=== PATIENT | female | born 1950 | race Caucasian/White ===

== ENCOUNTER 2021-11-03 08:12 | Observation (INO) ==
--- NOTE | 2021-10-29 12:20 | Anesthesiology Consultation ---
Date of Service October 29, 2021 Assessment & Plan (1) Encounter for pre-operative examination: Chart Review Chart Review: Acceptable Risk for Surgery (pending preop Covid testing results ) and Patient NOT seen in Pre Admission Testing - Check BSG AM DOS Per nursing assessment 10/29/21, patient denies any recent travel. No known Covid positive exposures or Covid related symptoms. No known Covid infection in the past 90 days. Pt is fully vaccinated for Covid. Preop Covid testing scheduled 10/30/21= will await results -S/P Right TKA (08/07/11): SAB at L3/L4 at [facility] History Surgery Operation Date: 11/03/21 12:25 Proposed Procedures p Left Total Knee Arthroplasty - Eugene Diego DO Height/Weight Height: 5 ft 3 in Weight: 83.915 kg Allergies Allergy/AdvReac Type Severity Reaction Status Date / Time erythromycin base AdvReac Mild Nausea Verified 10/29/21 11:27 Medications Home Medications Medication Instructions Recorded Confirmed Last Taken allopurinol 100 mg tablet 200 mg PO QAM 04/23/21 10/29/21 Unknown ascorbic acid (vitamin C) 500 mg 500 mg PO 3XWK 04/23/21 10/29/21 Unknown tablet (Vitamin C) atenolol 50 mg tablet 75 mg PO QAM 04/23/21 10/29/21 Unknown atorvastatin 80 mg tablet 80 mg PO QPM 04/23/21 10/29/21 Unknown bupropion HCl 100 mg tablet,12 hr 100 mg PO BID 04/23/21 10/29/21 Unknown sustained-release cholecalciferol (vitamin D3) 25 25 mcg PO QAM 04/23/21 10/29/21 Unknown mcg (1,000 unit) tablet (Vitamin D3) cyanocobalamin (vitamin B-12) 1,000 mcg PO QAM 04/23/21 10/29/21 Unknown 1,000 mcg tablet enalapril maleate 20 mg tablet 20 mg PO DAILY 04/23/21 10/29/21 Unknown ferrous sulfate 325 mg (65 mg 325 mg PO 3XWK 04/23/21 10/29/21 Unknown iron) tablet (iron) hydrochlorothiazide 25 mg tablet 25 mg PO QAM 04/23/21 10/29/21 Unknown magnesium 200 mg tablet 200 mg PO BID 04/23/21 10/29/21 Unknown omeprazole 20 mg capsule,delayed 20 mg PO QAM 04/23/21 10/29/21 Unknown release trazodone 50 mg tablet 50 mg PO HS PRN 04/24/21 10/29/21 Unknown amlodipine 2.5 mg tablet 2.5 mg PO QAM 10/29/21 10/29/21 Unknown Past Medical History Medical History Anxiety and depression Arthritis Chronic kidney disease GERD (gastroesophageal reflux disease) History of anemia Hx of diabetes mellitus Diet controlled since weight loss Hx of gout Hyperlipidemia Hypertension Peripheral neuropathy Restless leg syndrome Past Family History Family History Sister Family history of diabetes mellitus Other No family history of adverse response to anesthesia Past Surgical History Surgical History H/O umbilical hernia repair History of cataract surgery R/L History of cholecystectomy History of colonoscopy History of esophagogastroduodenoscopy (EGD) History of nasal surgery History of total right knee replacement Right TKA (08/07/11): SAB at L3/L4 at [facility] Social History Smoking Status: Former smoker Do You Dip or Chew Tobacco: No Smoking End Date: 1988 Hx Alcohol Use: Yes Alcohol type: wine alcohol intake frequency: a few times a week Hx Substance Use: No substance use type: does not use Lab Results Anesthesia Preop Results Results Anesthesia Widget: WBC 9.22 K/uL (4.8-10.8) 10/17/21 Hgb 11.2 g/dL (12.0-16.0) L 10/17/21 Hct 34.0 % (37-47) L 10/17/21 Plt 275 K/uL (130-400) 10/17/21 Na 140 mmol/L (136-145) 10/17/21 K 4.0 mmol/L (3.5-5.1) 10/17/21 Cl 105 mmol/L (98-107) 10/17/21 CO2 28 mmol/L (21-32) 10/17/21 BUN 32 mg/dl (6-23) H 10/17/21 Creat 1.09 mg/dl (0.6-1.2) 10/17/21 Glucose Level 99 mg/dl (70-99(Fasting)) 10/17/21 PT 10.7 Seconds (9.0-12.0) 10/17/21 PTT 25.9 Seconds (21.0-31.0) 10/17/21 INR 1.0 (0.9-1.1) 10/17/21 Blood Type O Positive 10/17/21 Antibody Screen NEGATIVE 10/17/21 Testing Laboratory Results Hx of anemia- on iron supplement- (relatively stable form 05/2021) Electrocardiogram Date: 04/23/21 Findings: + SB @ (58bpm ) Otherwise normal EKG per cardio
--- NOTE | 2021-10-30 09:10 | History & Physical Report ---
Date of Service October 30, 2021 Assessment & Plan (1) Left knee DJD: We will proceed with a left total knee arthroplasty. Postoperatively she will be kept overnight in the hospital and given aspirin for DVT prophylaxis. She wants to go to a rehab facility upon discharge. History of Present Illness Chief Complaint: Osteoarthritis of the left knee. Primary Care Provider: Redd Nugent MD Anita is a pleasant 71-year-old female who is been doing with chronic increasing left knee pain. X-rays and clinical examination have been diagnostic for advanced arthritis of the left knee. She has a history of a right knee [place] [address] Martini. She is done well with that. She like to proceed with a left total knee arthroplasty.. Allergies Allergy/AdvReac Type Severity Reaction Status Date / Time erythromycin base AdvReac Mild Nausea Verified 10/29/21 11:27 Home Medications Medication Instructions Recorded Confirmed Type allopurinol 100 mg tablet 200 mg PO QAM 04/23/21 10/29/21 History ascorbic acid (vitamin C) 500 mg 500 mg PO 3XWK 04/23/21 10/29/21 History tablet (Vitamin C) atenolol 50 mg tablet 75 mg PO QAM 04/23/21 10/29/21 History atorvastatin 80 mg tablet 80 mg PO QPM 04/23/21 10/29/21 History bupropion HCl 100 mg tablet,12 hr 100 mg PO BID 04/23/21 10/29/21 History sustained-release cholecalciferol (vitamin D3) 25 25 mcg PO QAM 04/23/21 10/29/21 History mcg (1,000 unit) tablet (Vitamin D3) cyanocobalamin (vitamin B-12) 1,000 mcg PO QAM 04/23/21 10/29/21 History 1,000 mcg tablet enalapril maleate 20 mg tablet 20 mg PO DAILY 04/23/21 10/29/21 History ferrous sulfate 325 mg (65 mg 325 mg PO 3XWK 04/23/21 10/29/21 History iron) tablet (iron) hydrochlorothiazide 25 mg tablet 25 mg PO QAM 04/23/21 10/29/21 History magnesium 200 mg tablet 200 mg PO BID 04/23/21 10/29/21 History omeprazole 20 mg capsule,delayed 20 mg PO QAM 04/23/21 10/29/21 History release trazodone 50 mg tablet 50 mg PO HS PRN 04/24/21 10/29/21 History amlodipine 2.5 mg tablet 2.5 mg PO QAM 10/29/21 10/29/21 History Past Med/Surg History Medical History Anxiety and depression Arthritis Chronic kidney disease GERD (gastroesophageal reflux disease) History of anemia Hx of diabetes mellitus Diet controlled since weight loss Hx of gout Hyperlipidemia Hypertension Peripheral neuropathy Restless leg syndrome Surgical History H/O umbilical hernia repair History of cataract surgery R/L History of cholecystectomy History of colonoscopy History of esophagogastroduodenoscopy (EGD) History of nasal surgery History of total right knee replacement Right TKA (08/07/11): SAB at L3/L4 at [facility] Family History Sister Family history of diabetes mellitus Other No family history of adverse response to anesthesia Social History Smoking Status: Former smoker Second Hand Exposure: Yes ( A CHILD); Hx Alcohol Use: Yes Alcohol type: wine Hx Substance Use: No Preferred Language: Lithuanian Communication Ability: Effective Trainmaster Required: No Beliefs That Will Affect Care: None Current Living Situation: Alone Feels Safe at Home: Yes Assistive Devices: Cane and Glasses Review of Systems All systems reviewed & are unremarkable except as noted in HPI & below. Physical Exam On physical examination of the left knee, she has a trace effusion she has good motion of 0 to 120 degrees. No instability. Pain of the distal medial femoral condyle. Constitutional WD/WN, vitals as above Eyes PERRL, conjunctivae normal, anicteric sclerae ENMT external ear and nose normal, oropharynx normal Neck trachea midline, no thyromegaly Respiratory normal respiratory effort Cardiovascular RRR, no murmur, no edema Gastrointestinal (Abdomen) normal bowel sounds, soft, nontender, no hepatosplenomegaly Psychiatric A+Ox3, euthymic affect Results & Data Results & Data Laboratory Results . Diagnostic Findings X-rays of the left knee do show some arthritis with joint space narrowing osteophyte formation and [id number] articulation. It mostly involves the medial compartment.. PG Care Time/CCT Total # of Minutes Spent Total Time Spent with Patient: Total time spent is greater than 50% in coordination of care (as documented) at patient's floor/unit and/or counseling patient: Coding Level of Care Code None Diagnoses Left knee DJD M17.12
[~2021-11-03 08:12] MED LIST: ACETAMINOPHEN 500 MG TAB PO SCH; BUPIVACAINE 0.5 % 5 MG/1 ML PF 10ML VIAL ONE; FAMOTIDINE 20 MG TAB PO SCH; GABAPENTIN 300 MG CAP PO SCH; Ketorolac (*for OR use only*) 30 MG, dexAMETHasone 4 MG, KETAMINE HCL (**OR use only) 1... INFIL SCH; LR 500ML BOLUS, THEN 15ML/HR IV SCH; LR 60ML/HR IV SCH; ROPIVACAINE 0.5% 5 MG/ML 30 ML VIAL ONE; TRANEXAMIC ACID 1,000 MG **IV Intra-op IV SCH; TRANEXAMIC ACID 1,000 MG **IV Pre-op IV SCH; ceFAZolin 2000MG 2,000 MG/15 ML SYR IV SCH; dexAMETHasone 4 MG TAB PO SCH
--- NOTE | 2021-11-03 08:33 | History & Physical Bridge Note ---
Date of Service November 03, 2021 History & Physical Bridge Note I have examined the patient, reviewed the History & Physical and in the interval since the performance of the History & Physical I have noted the following changes of clinical significance: no changes noted
[2021-11-03] MEDS ORDERED: MIDAZOLAM HCL 1 MG/ML 2ML VIAL ONE (10:03)
[2021-11-03] MEDS ORDERED: fentaNYL citrate 100 MCG/2 ML VIAL ONE (10:03)
[2021-11-03] MEDS ORDERED: PROPOFOL IV EMULSION 10 MG/ML 20 ML VIAL IV ONE ×2 (10:05)
[2021-11-03] MEDS ORDERED: HYDROmorphone INJ 1 MG/ML SYRINGE IV PRN (10:06)
[2021-11-03] MEDS ORDERED: KETOROLAC 30 MG/ML VIAL IV PRN (10:06)
[2021-11-03] MEDS ORDERED: ONDANSETRON INJ 2 MG/ML 2 ML VIAL IV PRN (10:06)
[2021-11-03] MEDS ORDERED: ATROPINE SULFATE 0.1 MG/ML 10ML SYR IV PRN (10:06)
[2021-11-03] MEDS ORDERED: ePHEDrine sulfate 50 MG/ML AMP IV PRN (10:06)
[2021-11-03] MEDS ORDERED: ORTHO JOINT ANESTHETIC ONE (10:39)
--- NOTE | 2021-11-03 12:21 | Operative Report ---
PG Post Operative Report Pre & Post Diagnosis Operation Date: 11/03/21 10:35 Pre-Op Diagnosis: Left Knee Degenerative Joint Disease Post-Op Diagnosis: Left Knee Degenerative Joint Disease I identified the patient and participated in the time-out.: Yes Procedure Operation Date: 11/03/21 10:35 Actual Procedures p Left Total Knee Arthroplasty(Left) - Eugene Diego DO Surgeon Eugene Diego DO Broker Assistant Chencho Camacho PAC Estimated Blood Loss 10 Findings Consistent with Post-Op Diagnosis Specimens Left femoral and tibial bone Complications none Disposition Disposition: Recovery Room Indications Anita is a pleasant 71-year-old female who is been dealing with chronic increasing left knee pain. X-rays and clinical examination have been diagnostic for advanced arthritis of the left knee. After failing conservative treatment, she elected proceed with a left total knee arthroplasty. Description of Procedure Implants used: I used a [employer] Person[employer] total knee arthroplasty system with a size 5 standard femur, D tibia, 28 oval patella, and a size 11 medial congruent polyethylene bearing. All components were cemented in place with Biomet cement. Anita arrived [facility] for the above procedure. She was seen in the preoperative holding area and the operative extremity was identified and signed. She was given a preoperative antibiotic, TXA, a spinal anesthetic and an adductor nerve block. She was taken back to the operating room and laid on the table in supine position. She was given basic sedation. The operative knee was then prepped and draped in sterile fashion. A timeout was done, and the patient and the operative extremity was properly identified. A midline incision was made directly over the patella. Dissection was taken down to the extensor mechanism. A subvastus arthrotomy was used. The medial retinaculum was released and the fat pad was mostly excised. The knee was flexed and the ACL, PCL, and meniscus were removed. A drill was sent down the center of the femoral canal followed by an intramedullary deepa. Off that deepa a distal femoral cutting block was placed. 9 mm was resected off the distal femur at 5 of valgus. A posterior referencing AP sizing guide was then placed on the distal femur. The femur measured to be a size 5. 2 drill holes were placed in 3 of external rotation. A 4-in-1 cutting block was then impacted into place. Anterior, posterior, and chamfer cuts were then made. The proximal tibia was then exposed. An external tibial alignment guide was placed. A tibial cut guide was then anchored in place and the proximal tibia was then resected. The posterior aspect of the knee was then opened up and any additional meniscus fragments and osteophytes were removed. The tibia measured to be a size D. The tibial plate was then placed in the appropriate rotation and the tibia was drilled and punched. Trial components were then placed. I used a size 11 medial congruent polyethylene insert. The knee was brought through a full range of motion and felt to be stable. The peg holes for the femoral component were then drilled. The patella was then everted and 9 mm was resected off the posterior aspect of the patella. The patella measured to be a size 28 oval. 3 peg holes were then drilled. A trial patella was placed. The knee was once again brought through a full range of motion and felt to be stable. Trial components were then removed. The surrounding soft tissues were injected with 100 cc of an orthopedic pain control cocktail. All components were then cemented into place with Biomet cement. The final polyethylene insert was then snapped into place. Once cement was dry the tourniquet was deflated. Hemostasis was obtained. A dilute betadyne lavage was then done for 3 minutes. The joint was then irrigated with normal saline solution. The subvastus arthrotomy was then closed with #1 Vicryl suture. The skin was closed with 2-0 Vicryl, 3-0V lock suture, and terell. A soft compressive dressing was placed. She was then transferred to a hospital bed and taken to the postanesthesia care unit in stable condition. She tolerated the procedure well. Jared Mueller PA-C, was present for the entire procedure. He was critical for patient positioning, prepping, draping, retraction exposure, wound closure and application of sterile dressing. I attest to the content of the Intraoperative Record and any orders documented therein. Any exceptions are noted below.
--- NOTE | 2021-11-03 12:57 | XRay Report ---
LEFT KNEE 2 VIEWS History: Left total knee arthroplasty. Degenerative arthritis. Postop. FINDINGS: The patient is status post a left total knee arthroplasty. The hardware is intact. No fract ure or dislocation. Skin terell are in place. IMPRESSION: Left total knee arthroplasty. No evidence for hardware complication. ACT 112: Negative or not required by law. Electronically signed by: Cyrus Madison M.D. 11/03/2021 12:56 PM
--- NOTE | 2021-11-03 13:27 | Anesthesiology Progress Note ---
Date of Service November 03, 2021 Anesthesia Post Procedure Vital Signs Vital Signs: Temp Pulse Pulse Resp BP Pulse Ox 11/03/21 13:20 62 15 146/62 H 96 11/03/21 13:10 59 L 17 150/65 H 97 11/03/21 13:00 60 13 162/70 H 98 11/03/21 12:50 61 19 159/69 H 95 11/03/21 12:40 60 16 160/69 H 96 11/03/21 12:30 67 16 157/67 H 99 11/03/21 12:24 36.3 C L 67 17 156/72 H 100 11/03/21 10:40 62 16 147/60 H 100 11/03/21 10:35 62 18 146/62 H 100 11/03/21 09:02 37.0 C 63 18 208/73 H 98 Pain Intensity Left Knee: Pain Intensity: 0 Transfer of Care Handoff Completed per policy Notes Mental Status: alert / awake / arousable Patient Amnestic to Procedure: Yes Nausea / Vomiting: adequately controlled Pain: adequately controlled Airway Patency, RR, SpO2: stable & adequate BP & HR: stable & adequate Hydration State: stable & adequate Anesthetic Complications: no major complications apparent
[2021-11-03] MEDS ORDERED: oxyCODONE HCL IR 5 MG TAB (IMMEDIATE RELEASE) PO PRN (14:03)
[2021-11-03] MEDS ORDERED: NALOXONE HCL 0.4 MG/1 ML VIAL/CARP IV PRN (14:03)
[2021-11-03] MEDS ORDERED: MAGNESIUM HYDROXIDE SUSP 30 ML UDC PO PRN (14:03)
[2021-11-03] MEDS ORDERED: bisacodyL 10 MG SUPP PR PRN (14:03)
[2021-11-03] MEDS ORDERED: HYDROmorphone INJ 0.5 MG/0.5 ML SYR IV PRN (14:03)
[2021-11-03] MEDS ORDERED: METOCLOPRAMIDE HCL INJ 5 MG/ML 2 ML VIAL IV PRN (14:03)
[2021-11-03] MEDS: KETOROLAC TROMETHAMINE 15 MG/ML VIAL IV SCH ×2 (14:22→20:04)
[2021-11-03] MEDS: SODIUM CHLORIDE 0.9% 1000ML 1,000 ML IV SCH ×2 (14:23→22:02)
[2021-11-03] MEDS: ceFAZolin 2000MG 2,000 MG/15 ML SYR IV SCH (18:02)
[2021-11-03] MEDS: ASPIRIN 81 MG ECTAB PO SCH (20:04)
[2021-11-03] MEDS: DOCUSATE SODIUM 100 MG CAP PO SCH (20:05)
[2021-11-03] MEDS: buPROPion SR 100 MG TABCR PO SCH (20:05)
[2021-11-03] MEDS ORDERED: ATORVASTATIN 40 MG TAB PO SCH (21:00)
[2021-11-03] MEDS ORDERED: SENNA 8.6 MG TAB PO SCH (21:00)
[2021-11-03] MEDS ORDERED: traZODone HCL 50 MG TAB PO PRN (21:00)
[2021-11-04] MEDS: ceFAZolin 2000MG 2,000 MG/15 ML SYR IV SCH (03:01)
[2021-11-04] MEDS: KETOROLAC TROMETHAMINE 15 MG/ML VIAL IV SCH ×2 (03:01→09:35)
--- NOTE | 2021-11-04 06:07 | Orthopedic Progress Note ---
Date of Service November 04, 2021 Assessment & Plan (1) Status post left knee replacement: Overall she is doing fairly well. She is having too much pain in the left knee. She is on aspirin for DVT prophylaxis. She will be seen by physical therapy today for ambulation and range of motion exercises. She does live alone. She is planning to go to a rehab facility upon discharge. She is orthopedically stable for discharge when a bed becomes available. Mirza Howard was seen and examined at bedside this morning. Overall she is doing fairly well. She is not in too much pain in the left knee. She has been up and ambulating to the bathroom. She has no complaints. Review of Systems All systems reviewed & are unremarkable except as noted in HPI & below. Physical Exam On physical examination of the left knee, the dressing is clean and dry. Her leg is out in full extension. She has active dorsiflexion plantarflexion of her left ankle.. Results & Data Results & Data Laboratory Results . Diagnostic Findings Postoperative x-rays of the left knee show the prosthesis to be in anatomic alignment without any evidence of fracture, desiccation, or loosening. PG Care Time/CCT Total # of Minutes Spent Total Time Spent with Patient: Total time spent is greater than 50% in coordination of care (as documented) at patient's floor/unit and/or counseling patient: Coding Level of Care Code 33497 Post Operative Follow-Up Diagnoses Status post left knee replacement Z96.652
[2021-11-04] MEDS ORDERED: dexAMETHasone 4 MG TAB PO SCH (08:00)
[2021-11-04] MEDS ORDERED: MULTIVITAMIN TAB PO SCH (09:00)
[2021-11-04] MEDS ORDERED: hydroCHLOROthiazide 25 MG TAB PO SCH (09:00)
[2021-11-04] MEDS ORDERED: amLODIPine BESYLATE 5 MG TAB PO SCH (09:00)
[2021-11-04] MEDS ORDERED: ENALAPRIL MALEATE 10 MG TAB PO SCH (09:00)
[2021-11-04] MEDS ORDERED: ATENOLOL 25 MG TABLET PO SCH (09:00)
[2021-11-04] MEDS ORDERED: PANTOprazole 40 MG TAB PO SCH (09:00)
[2021-11-04] MEDS ORDERED: allopurinoL 100 MG TAB PO SCH (09:00)
[2021-11-04] MEDS: ASPIRIN 81 MG ECTAB PO SCH (09:28)
[2021-11-04] MEDS: DOCUSATE SODIUM 100 MG CAP PO SCH (09:28)
[2021-11-04] MEDS: buPROPion SR 100 MG TABCR PO SCH (09:28)
--- NOTE | 2021-11-05 06:33 | Discharge Summary ---
Date of Service November 05, 2021 Admission HPI (Per Admitting) Anita is a pleasant 71-year-old female who is been doing with chronic increasing left knee pain. X-rays and clinical examination have been diagnostic for advanced arthritis of the left knee. She has a history of a right knee [place] [address] Martini. She is done well with that. She like to proceed with a left total knee arthroplasty.. Admission Exam (Per Admitting) On physical examination of the left knee, she has a trace effusion she has good motion of 0 to 120 degrees. No instability. Pain of the distal medial femoral condyle. Principal Diagnosis Same as "Discharge Diagnosis" noted below under Discharge Instructions. Discharge Exam On physical examination of the left knee, the dressing is clean and dry. Her leg is out in full extension. She has active dorsiflexion plantarflexion of her left ankle.. Discharge Data Procedures Performed Operation Date: 11/03/21 10:35 Actual Procedures p Left Total Knee Arthroplasty(Left) - Eugene Diego DO Ordered Studies 11/03/21 05:00 US - OR guided needle placemen Routine Hospital Course (1) Status post left knee replacement: On November 03, 2021 Anita arrived at [facility] and underwent a left knee replacement without complication. She had a spinal anesthetic. Postoperatively she was started on aspirin for DVT prophylaxis and transferred to the general orthopedic floors. Her hospital course was uneventful. On postop day #1 her vital signs were stable and her pain was well controlled. She was able to participate well with physical therapy doing ambulation and range of motion exercises. She was then [facility] to [facility]. She will follow- up with orthopedics in 2 weeks. PG Care Time/CCT Total # of Minutes Spent Total Time Spent with Patient: Total time spent is greater than 50% in coordination of care (as documented) at patient's floor/unit and/or counseling patient: Discharge Plan Discharge Items Patient Disposition: Transfer Inpatient Rehab Fac Reason For Visit: Left Knee Degenerative Joint Disease Discharge Diagnosis: Left knee replacement Activity: Per Instructions section Non-emergency contact: Surgeon Call non-emergency contact if: your wound has increased redness and your wound has increased drainage Follow-up/Referrals: Redd Nugent MD [Primary Care Provider] - Diet: Regular Addtl Attending Provider Instructions: Activity and Therapy Recommendations: * If you are using [facility] then therapy will be provided at your home until they feel you have accomplished all of your goals. * If you are using [facility] then Physical Therapy will be provided until they feel you are ready to start Outpatient Physical Therapy. * If you are not using home therapy then Outpatient Physical Therapy should start about 3-5 days from your day of surgery. Therapy will last about 6-10 weeks * It is important not to put a pillow under your knee when you are relaxing or sleeping. It is just as important to make sure you are getting your knee perfectly straight as it is to regain your knee bend. * You were shown a series of exercises in the hospital. Do these exercises three times each day including the exercises you were shown in physical therapy. * Get up and walk several times each day. For the first four weeks, try not to stand or walk for more than one hour at a time. If you do stand or walk for more than one hour, you will not hurt anything, but your leg will likely swell. * As you feel comfortable, you may change from the walker or crutches to a cane and then to independent walking. Medications: * Narcotic You will likely be sent home from the hospital with a prescription for the narcotic pain medication that worked best throughout your stay. * Aspirin Most patients will be required to take Aspirin 81mg twice a day for 6 weeks after surgery. This is obtained [id number] and a prescription is not necessary. * Other medications may be prescribed for specific circumstances. If you have any questions, please call the office at . * Resume previous home medications unless otherwise instructed TEDs/Elastic Stockings: The white elastic stockings help limit swelling and prevent blood clots from forming in your legs.~ The more you wear them, the more they work. Wear them for six weeks. Dressing Care: The dressing can be changed after physical therapy on postop day #1. Daily dry dressing changes for a few days, especially if the incision is still draining some. If the incision is not draining then you may leave the terell open to air. If there is a little bit of drainage or if the terell are getting stuck on your clothing then cover the incision with a dry dressing. The terell will be removed at your 2 week follow-up appointment. Showering: You may shower 5 days from the day of surgery as long as the incision is no longer draining. You may shower with the terell exposed. Let soapy water run over the terell and pat them dry. Do not scrub or soak the incision. Things To Watch For: * Drainage from the incision site that occurs more than one week after your surgery. * Increased redness at the incision site. * Fever above 102 degrees Fahrenheit. * Unusual chest pain or shortness of breath. * Call [facility] at with any of the above problems Follow-Up Visit: Follow-up with Dr. Diego's PA (Eugene Lomax) 2-3 weeks after your day of surgery. He will remove your terell and answer any questions. If you have any additional questions or concerns, Dr Diego is usually in the office at the same time and will be available An appointment was probably scheduled when you signed-up for surgery in the office. If you have any questions call Office Instructions: More detailed instructions as well as Frequently Asked Questions were provided in a folder by our office when you signed-up for surgery. Please review these instructions when you get home. If you have any further questions or concerns, please feel free to call the office at [phone] Pending Studies at Discharge: No Stand-Alone Forms: My [facility] Skilled Items Patient informed of condition?: Yes DNR: No Discharge Level of Care: Acute rehab Communicable Disease: No Discharge Prognosis: Improving Lines: None Urinary Catheter: No Medications and DC Order Prescriptions: New oxycodone-acetaminophen 5-325 mg tablet 1 tab PO Q6H PRN (Reason: pain) Qty: 30 RF: 0 aspirin [Adult Aspirin Regimen] 81 mg tablet,delayed release (DR/EC) 81 mg PO BID Qty: 84 RF: 0 Continued amlodipine 2.5 mg Tablet 2.5 mg PO QAM RF: 0 atorvastatin 80 mg Tablet 80 mg PO QPM RF: 0 enalapril maleate [Vasotec] 20 mg Tablet 20 mg PO DAILY RF: 0 cyanocobalamin (vitamin B-12) 1,000 mcg Tablet 1,000 mcg PO QAM RF: 0 allopurinol 100 mg Tablet 200 mg PO QAM RF: 0 bupropion HCl [Wellbutrin SR] 100 mg Tablet Sustained-Release 12 Hr 100 mg PO BID RF: 0 ascorbic acid (vitamin C) [Vitamin C] 500 mg Tablet 500 mg PO 3XWK RF: 0 ferrous sulfate [iron] 325 mg (65 mg iron) Tablet 325 mg PO 3XWK RF: 0 omeprazole 20 mg Capsule,Delayed Release(Dr/Ec) 20 mg PO QAM RF: 0 hydrochlorothiazide 25 mg Tablet 25 mg PO QAM RF: 0 atenolol 50 mg Tablet 75 mg PO QAM RF: 0 magnesium 200 mg Tablet 200 mg PO BID RF: 0 cholecalciferol (vitamin D3) [Vitamin D3] 25 mcg (1,000 unit) Tablet 25 mcg PO QAM RF: 0 trazodone 50 mg Tablet 50 mg PO HS PRN (Reason: insomnia) RF: 0 Discharge Orders: Discharge Order (Routine); Ordered 11/04/21 Ordered By: Eugene Bond/Other Patient Handouts: DVT Post Op Prevention Admission Data Admit Date/Time: 11/03/21 12:25 Attending Provider: Eugene Diego Admit Provider: Eugene Diego Primary Care Provider: Redd Nugent Other Providers: [facility] Other Interventions: Discharge Summary Assessment (RN) Last Done: 11/04/21 14:30
== END 2021-11-04 15:36 ==
LOC: ASU 08:12 → 3E 08:12